=== PATIENT | male | born 1955 | race Caucasian/White ===

== ENCOUNTER 2017-12-01 20:25 | Observation (INO) | payer SELFPAY ==
--- NOTE | 2017-12-01 20:40 | CPEKG ---
Heart Rate: 67 RR Interval: 896 P-R Interval: 144 QRSD Interval: 98 QT Interval: 404 QTC Interval: 427 P [place]: 26 QRS [place]: 29 T Wave [place]: 15 EKG Severity - NORMAL ECG - EKG Impression: SINUS RHYTHM Electronically Signed By: Ju Reaves 02-Dec-2017 15:49:08
--- NOTE | 2017-12-01 20:47 | EDPHY ---
HPI/HX/ROS/PE/MDM Narrative: CHIEF COMPLAINT: Changing blood pressure HISTORY OF PRESENT ILLNESS: The patient is a 62 y/o male with a history of 4 cardiac stents and hypertension complaining of an increasing diastolic pressure. 1 month ago he had crushing chest pain and dizziness that last for 20 minutes. Denies receiving medical attention at this time. Since the chest pain his diastolic has been rising. He has had no chest pain, but "felt pressure build up in his body" and became more "agitated and confused". He also felt like his gait was "sluggish", but did not have vision or speech difficulties. Last week he became tired after exerting himself and felt pressure in his body. His blood pressure was 170/107, and his PCP was concerned of a hypertensive emergency. He did not receive medical attention at this time as he was in [place]. 2 days ago his blood pressure was 140/80. Today his blood pressure changed from 170/110 but dropped down to 115/70 after working out. He also experienced chest pressure and pins and needles in his chest, at around 14:00, 7.5 hours ago. Denies loss of consciousness. Denies taking an luis inhibitor or an Aspirin. Patient reports a brief episode of chest pain while in the ED as well. Last stress test was at least 4 years ago per the patient. No fever, recent illness, chills, shortness of breath, palpitations, vomiting, diarrhea, urinary complaints, syncope. REVIEW OF SYSTEMS: Aside from elements discussed in the HPI, a comprehensive 10-point review of systems was reviewed and is negative. PAST MEDICAL HISTORY: Cardiac stents x 4, hypertension. Take HCTZ for hypertension; denies any other antihypertensives. SOCIAL HISTORY: Lives in [place], at bedside, drinks wine 3-4 times a week , PCP based in [place] VITAL SIGNS: BP: 167/96, others reviewed by me GENERAL: Well-developed, well-nourished, resting comfortably in no respiratory distress. HEENT: Atraumatic. Eyes: No icterus, no injection. Mouth: moist mucous membranes. No erythema or lesions. Neck: supple with no adenopathy. LUNGS: Clear to auscultation bilaterally, no wheezes, rhonchi or rales. CARDIAC: Regular rate and rhythm, no rubs, murmurs or gallops. ABDOMEN: Soft, nontender, nondistended, bowel sounds normal. BACK: No CVA tenderness. EXTREMITIES: No trauma. No edema. Range of motion is normal throughout. NEURO: Alert and oriented, grossly nonfocal. SKIN: Warm and dry, no rash. PSYCHIATRIC: Normal mentation, no agitation. Very anxious about his blood pressure readings and the fluctuations. Portions of this note were transcribed by a director of medical staff services. I personally performed a history, physical exam, medical decision making, and confirmed accuracy of information the transcribed note. ED Course: The patient is a 62 y/o male with a history of 4 cardiac stents and hypertension presenting with an increasing diastolic pressure and fluctuating blood pressure since experiencing crushing chest pain 1 month ago. He also reports intermittent clutching sensation of chest pain, including an episode today. His physical exam is normal. Chest x-ray, EKG, and labs ordered. 2210: Patient has a negative d-dimer and troponin. Normal CXR, Neg head CT. 2303: Reassessed patient and discussed imaging findings. Long conversation held with patient concerning need for urgent risk startification, provocative testing. 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 After discussions, they understand the importance of further evaluation, monitoring, and testing in the hospital. He is comfortable with being admitted for further observation and evaluation. 2316: Consulted with hospitalist service, Dr. Christensen accepts admission of this patient. MDM: Diff dx considered included essential hypertension, hypertensive emergency, hypertensive urgency, acute coronary syndrome, chf, diastolic dysfunction, arrythmias. - Data Points Imaging Results: Impression: Clear lungs. No acute process. Dictated By: Reynold Rhoades MD Impression: Normal brain. No intercranial hemorrhage, mass, or swelling. Findings were communicated to Emergency Department physician, Ju Reaves MD via her scribe at 12/01/2017 22:53. Imaging: Discussed imaging studies w/ call center consultant Radiologist, I viewed and interpreted images myself Laboratory Results: Laboratory Results 12/01/17 20:40 12/01/17 20:40 Medications Given: Enoxaparin Sodium (Lovenox) 40 mg SC DAILY EDVIN Stop: 05/31/18 08:59 Last Admin: 12/02/17 08:56 Dose: Not Given Discontinued Medications Metoprolol Tartrate (Lopressor) 25 mg PO ONCE ONE Stop: 12/02/17 10:55 Last Admin: 12/02/17 11:38 Dose: 25 mg General Time Seen by Provider: 12/01/17 20:41 Initial Vital Signs: Initial Vital Signs Temperature (C) 36.8 C 12/01/17 20:29 Heart Rate 75 12/01/17 20:29 Respiratory Rate 16 12/01/17 20:29 Blood Pressure 167/96 H 12/01/17 20:29 O2 Sat (%) 96 12/01/17 20:29 O2 Delivery Mode Room Air Allergies/Adverse Reactions: Penicillins Allergy (Verified 12/01/17 20:31) Home Medications: Medication Instructions Recorded Triamterene/Hctz 37.5/ [Dyazide 1 each PO DAILY 12/02/17 37.5/ (*)] Departure - Departure Disposition: [facility] Inpatient Acute Clinical Impression: Chest discomfort CAD (coronary artery disease) Qualifiers: Coronary Disease-Associated Artery/Lesion type: unspecified vessel or lesion type [place] vs. transplanted heart: [place] heart Associated angina: with unspecified angina Qualified Code(s): I25.119 - Atherosclerotic heart disease of [place] coronary artery with unspecified angina pectoris Hypertension Qualifiers: Hypertension type: unspecified Qualified Code(s): I10 - Essential (primary) hypertension Condition: Fair Report Scribed for: Ju Reaves Report Scribed by: Diane Mota Date of Report: 12/01/17 Time of Report: 20:47
[2017-12-01 21:34] LABS: PLATELET COUNT 158 10^3/uL (150-400)
[2017-12-01] MEDS ORDERED: ACETAMINOPHEN 325 MG TAB PO PRN (23:20)
[2017-12-01] MEDS ORDERED: ONDANSETRON DISINTEGRATING 4 MG TAB PO PRN (23:20)
[2017-12-01] MEDS ORDERED: ONDANSETRON 4 MG/2 ML VIAL IVP PRN (23:20)
--- NOTE | 2017-12-02 01:43 | PDGENHP ---
History and Physical - Chief Complaint Chest discomfort - History of Present Illness 62 yo M w/ hx of CAD and HTN presents with fatigue and chest discomfort. Patient reports hx of CAD with stents placed 8 and 5 years ago. He explains he initially had drug eluting stents followed by bare metal stents per his request. He does not take ASA, statin, or BB. His only medication is HCTZ. He explains he had an episode 3 months ago where he collapsed in his driveway while carrying boxes followed by chest pain. He did not seek medical attention at that time. Then, over the last few days, he has noticed increased fatigue and occasional chest tightness. These symptoms worsened today so he decided to come in the ED for evaluation. In the ED BP was noted to be elevated, which he states is new for him. He has been checking his BP regularly over the last few weeks and has noticed values as high as SBP>200. Additional evaluation was unremarkable with negative troponin and non-ischemic ECG. History Information - Allergies/Home Medication List Allergies/Adverse Reactions: Penicillins Allergy (Verified 12/01/17 20:31) I have personally reviewed and updated: family history, medical history - Past Medical History coronary artery disease, hypertension - Surgical History Reports: no pertinent surgical hx - Family History Positive for: cancer - Social History Smoking Status: Never smoked Review of Systems Review of Systems: ROS: 10pt was reviewed & negative except for what was stated in HPI & below Physical Exam Physical Exam: Temp Pulse Resp BP Pulse Ox 36.6 C 63 17 170/88 H 95 12/02/17 00:10 12/02/17 00:10 12/02/17 00:10 12/02/17 00:10 12/02/17 00:10 Constitutional: no apparent distress, not in pain Eyes: PERRL, EOMI Ears, Nose, Mouth, Throat: moist mucous membranes, no oral mucosal ulcers Cardiovascular: regular rate and rhythym, no murmur, rub, or gallop Respiratory: no respiratory distress, clear to auscultation Gastrointestinal: normoactive bowel sounds, soft, non-tender abdomen Skin: warm, normal color Musculoskeletal: full muscle strength, no muscle tenderness Neurologic: AAOx3, CN II-XII Intact Psychiatric: interacting appropriately, not anxious Lab Data & Imaging Review 12/01/17 20:40 12/01/17 20:40 WBC 7.18 10^3/uL (3.80-9.50) 12/01/17 20:40 RBC 5.77 10^6/uL (4.40-6.38) 12/01/17 20:40 Hgb 16.9 g/dL (13.7-17.5) 12/01/17 20:40 Hct 48.8 % (40.0-51.0) 12/01/17 20:40 MCV 84.6 fL (81.5-99.8) 12/01/17 20:40 MCH 29.3 pg (27.9-34.1) 12/01/17 20:40 MCHC 34.6 g/dL (32.4-36.7) 12/01/17 20:40 RDW 12.6 % (11.5-15.2) 12/01/17 20:40 Plt Count 158 10^3/uL (150-400) 12/01/17 20:40 MPV 11.9 fL (8.7-11.7) H 12/01/17 20:40 Neut % (Auto) 72.7 % (39.3-74.2) 12/01/17 20:40 Lymph % (Auto) 16.9 % (15.0-45.0) 12/01/17 20:40 [place] % (Auto) 9.1 % (4.5-13.0) 12/01/17 20:40 Eos % (Auto) 0.6 % (0.6-7.6) 12/01/17 20:40 Baso % (Auto) 0.4 % (0.3-1.7) 12/01/17 20:40 Nucleat RBC Rel Count 0.0 % (0.0-0.2) 12/01/17 20:40 Absolute Neuts (auto) 5.23 10^3/uL (1.70-6.50) 12/01/17 20:40 Absolute Lymphs (auto) 1.21 10^3/uL (1.00-3.00) 12/01/17 20:40 Absolute Monos (auto) 0.65 10^3/uL (0.30-0.80) 12/01/17 20:40 Absolute Eos (auto) 0.04 10^3/uL (0.03-0.40) 12/01/17 20:40 Absolute Basos (auto) 0.03 10^3/uL (0.02-0.10) 12/01/17 20:40 Absolute Nucleated RBC 0.00 10^3/uL (0-0.01) 12/01/17 20:40 Immature Gran % 0.3 % (0.0-1.1) 12/01/17 20:40 Immature Gran # 0.02 10^3/uL (0.00-0.10) 12/01/17 20:40 D-Dimer < 0.27 ug/mLFEU (0.00-0.50) 12/01/17 21:37 Sodium 142 mEq/L (135-145) 12/01/17 20:40 Potassium 3.5 mEq/L (3.5-5.2) 12/01/17 20:40 Chloride 98 mEq/L (97-110) 12/01/17 20:40 Carbon Dioxide 31 mEq/l (22-31) 12/01/17 20:40 Anion Gap 13 mEq/L (8-16) 12/01/17 20:40 BUN 17 mg/dL (7-23) 12/01/17 20:40 Creatinine 1.3 mg/dL (0.7-1.3) 12/01/17 20:40 Estimated GFR 56 12/01/17 20:40 Glucose 89 mg/dL (70-100) 12/01/17 20:40 Calcium 9.5 mg/dL (8.5-10.4) 12/01/17 20:40 Troponin I < 0.012 ng/mL (0.000-0.034) 12/01/17 20:40 Imaging Review: Imaging Impressions Chest X-Ray 12/01/17 21:19 Impression: Clear lungs. No acute process. Head CT 12/01/17 22:10 Impression: Normal brain. No intercranial hemorrhage, mass, or swelling. Findings were communicated to Emergency Department physician, Ju Reaves MD via her scribe at 12/01/2017 22:53. Visualized and Interpreted EKG results: Yes EKG Interpretation: Positive for: normal sinsus rhythm Assessment & Plan Assessment: 62 yo M w/ hx of CAD and HTN presents with fatigue, chest discomfort, and elevated BP. Plan: 1. Chest discomfort - Described by patient as tightness associated with fatigue and elevated BP. He also had a concerning episode 3 months ago where he collapsed and then experienced chest pain. He has significant CAD history including multiple stents and does not take any evidence based medications (ASA , BB, statin) so he is high risk for complication. - Admit to PCU for observation - Trend cardiac enzymes, monitor on telemetry - Will order nuclear stress test for risk stratification 2. CAD - Patient reports hx of CAD with stents placed 8 and 5 years ago. He explains he initially had drug eluting stents followed by bare metal stents per his request. He does not take ASA, statin, or BB. - Acute work-up as above 3. HTN, uncontrolled - Patient takes only HCTZ at home. Unclear if elevated BP is secondary, perhaps to stress from ongoing ischemia, or essential. - If ACS work-up negative, consider addition of ARB (patient reports adverse effects to CCB, BB, and MARE). Diet - NPO pending risk stratification Code - Full Ppx - LMWH Dispo - Admit to PCU for observation
[2017-12-02 04:42] LABS: PLATELET COUNT 137 10^3/uL (150-400)
[2017-12-02] MEDS ORDERED: ENOXAPARIN 40 MG/0.4 ML SYR SC SCH (09:00)
--- NOTE | 2017-12-02 09:04 | ASMTCMCOM ---
CM Note CM Note Notes: 12/02/2017 Case Management Note Reviewed chart. Pt admitted for chest discomfort, hypertension with a history of cardiac stents. There are no immediate case management d/c needs identified at this time d/t pt age, marital status, employment status and activity levels prior to admission. There are no PT or OT orders at this time. Case Management d/c poc: independent with follow up as directed. Case Management available if needs change. Date Signed: 12/02/2017 09:03 AM Electronically Signed By:Jaleesa Valles RN
--- NOTE | 2017-12-02 09:39 | HOSPPROG ---
Hospitalist Progress Note Assessment/Plan: #Accelerated HTN: improved now #Chest pressure: likely due to uncontrolled HTN. h/o CAD with multiple stents -Cardiac CTA pending. #CAD: 5 stents in past, only on HCTZ. Declines ASA, BB, statin #Diet: regular #DVT ppx: Lovenox #Disp: cont observation admission. May DC today if normal cardiac CT Subjective: no chest pain, SOB this morning Objective: Vital Signs Temp Pulse Resp BP Pulse Ox 36.5 C 65 12 147/94 H 96 12/02/17 07:59 12/02/17 07:59 12/02/17 07:59 12/02/17 07:59 12/02/17 07:59 Laboratory Results 12/02/17 03:35 12/02/17 03:35 12/01/17 12/02/17 12/03/17 05:59 05:59 05:59 Intake Total 500 Output Total 625 Balance -125 - Physical Exam Constitutional: no apparent distress Eyes: PERRL Ears, Nose, Mouth, Throat: moist mucous membranes, hearing normal Cardiovascular: regular rate and rhythym, no murmur, rub, or gallop, No edema Respiratory: no respiratory distress, no rales or rhonchi Gastrointestinal: normoactive bowel sounds, soft, non-tender abdomen Genitourinary: no bladder fullness Skin: warm Musculoskeletal: full muscle strength Neurologic: AAOx3, CN II-XII Intact Psychiatric: interacting appropriately ICD10 Worksheet Patient Problems: Problems Problem Status Onset CAD (coronary artery disease) Acute Chest discomfort Acute Hypertension Acute
[2017-12-02] MEDS ORDERED: METOPROLOL TARTRATE 25 MG TAB PO ONE (10:54)
[2017-12-02 11:35] VITALS: TEMP 98.2
[2017-12-02] MEDS ORDERED: IOPAMIDOL (ISOVUE 370) 100 ML BTL IV ONE (12:40)
[2017-12-02 16:40] VITALS: BP 125/78; PULSE 57; RESP 16; O2SAT 93
--- NOTE | 2017-12-02 19:44 | GDS ---
[f rep st] DISCHARGE SUMMARY DISCHARGE DIAGNOSES: 1. Coronary disease, multivessel. 2. Accelerated hypertension. 3. Chest discomfort. HISTORY OF PRESENT ILLNESS: A 62-year-old male with known coronary artery disease, status post 5 jesse nts greater than 10 years ago, presenting with elevated blood pressure and chest discomfort. The only medication he takes is hydrochlorothiazide at home. He does not take an aspirin, statin or beta jolie. He had an episode 3 months ago where he collapsed in his driveway after hiking, follow ed by chest pain. He did not seek medical attention at that time. Over the last few days he has not iced increased fatigue and occasional chest tightness. These symptoms worsened on the day of admissi on, so he decided to come to the emergency department. He noted that his systolic blood pressures [place] d been greater than 200 and his diastolic blood pressure greater than 100. He reports a widened puls e pressure at home. HOSPITAL COURSE BY PROBLEM: 1. Acute chest pressure: Initial plan was Lexiscan; however, we were out of the isotope, so the pat ient underwent coronary angiogram. It showed a patent RCA, LAD, and 1st diagonal coronary stents. T here was mild to moderate 50% stenosis of the LAD, severe stenosis of mid LAD 60% to 70%. Also 50% s tenosis of first diagonal branch and mild 50% to 60% first obtuse marginal. I had an extensive conve rsation with the patient and his discussing treatment options. He declines medical management, including aspirin, statin or beta jolie given bradycardia. He has a personal physician that he wan ts to consult. He follows more of alternative treatments with diet and exercise. He was given stric t return precautions if any chest pain, shortness of breath, or dizziness. 2. He reports a widen pulse pressure at home. Would recommend for further evaluation as an outpatie nt. He plans to follow up with his private physician. 3. Accelerated hypertension: Initial systolic blood pressure was greater than 200. It has improved to the 140s. 4. Chest discomfort: Again, coronary CT demonstrated multivessel disease. The vessels affected are the LAD with a 60% to 70% stenosis, first DM and first OM. Again, he declined any further cardiac e valuation at this time. DISPOSITION: Patient is chest pain-free and would like to go home. He is stable for discharge. MEDICATIONS: No new medications. FOLLOWUP: I would recommend establishing care with a fastener technologist. He is to follow up with his [facility] physician. /[id number]/MODL
[2017-12-03] MEDS ORDERED: TRIAMTERENE/HCTZ 37.5/25 1 EACH CAP PO SCH (09:00)
--- NOTE | 2017-12-03 12:01 | ASDISCHSUM ---
Discharge Information Plan Status:Home with No Needs Medically Cleared to Leave:12/01/2017 Discharge Date:12/02/2017 06:10 PM CM D/C Disposition:Home, Routine, Self-Care ADT D/C Disposition:Home, Routine, Self-Care Projected Discharge Date:12/02/2017 06:10 PM Transportation at D/C: Discharge Delay Reason: Follow-Up Date:12/02/2017 06:10 PM Discharge Slot: Final Diagnosis: Placement Information Patient Contact Information Contact Name:MEREDITH Relationship: Address:[address] [place] [address] City:[place] Alternate Phone: [facility]/Zip Code:[place] [address] Email: Financial Information Financial Class:Self-Pay Primary Plan Desc:SELF PAY Primary Plan Number: Secondary Plan Desc: Secondary Plan Number: Assessment Information [facility] CM Progress Note CM Note CM Note Notes: 12/02/2017 Case Management Note Reviewed chart. Pt admitted for chest discomfort, hypertension with a history of cardiac stents. There are no immediate case management d/c needs identified at this time d/t pt age, marital status, employment status and activity levels prior to admission. There are no PT or OT orders at this time. Case Management d/c poc: independent with follow up as directed. Case Management available if needs change. Date Signed: 12/02/2017 09:03 AM Electronically Signed By:Jaleesa Valles RN Intervention Information
--- NOTE | 2017-12-03 12:02 | ASMTLACE ---
LACE Length of stay for Answers: Less than 1 day current admission Acuity / Level of Answers: Yes Care: Did the patient have an inpatient admission? Comorbidities - select Answers: Other all that apply # of Emergency department Answers: 0 visits in the last 6 months Score: 4 Date Signed: 12/03/2017 12:01 PM Electronically Signed By:Jaleesa Valles RN
== END 2017-12-02 18:10 | disposition home or self-care (01) ==
LOC: F2W 12-02 00:07
PROVIDERS: ADMIT Student in an Organized Health Care Education/Training Program; ATTEND Student in an Organized Health Care Education/Training Program
DX: R07.9 Chest pain, unspecified (principal); I25.10 Atherosclerotic heart disease of native coronary artery without angina pectoris; I10 Essential (primary) hypertension; K44.9 Diaphragmatic hernia without obstruction or gangrene; Z95.1 Presence of aortocoronary bypass graft
CPT/HCPCS: G0378; Q9967

== ENCOUNTER 2018-08-07 06:10 | Day surgery (SDC) | payer OTHER ==
[2018-08-07] MEDS ORDERED: FAMOTIDINE 20 MG TAB PO ONE (06:12)
[2018-08-07] MEDS ORDERED: NS 1,000 ML IV ONE (06:12)
[2018-08-07] MEDS ORDERED: ASPIRIN EC 325 MG TAB PO ONE ×2 (06:12→06:34)
[2018-08-07] MEDS ORDERED: DIAZEPAM 5 MG TAB PO ONE (06:12)
[2018-08-07] MEDS ORDERED: diphenhydrAMINE 25 MG CAP PO ONE ×2 (06:12→06:33)
[2018-08-07] MEDS ORDERED: DIAZEPAM 5 MG TAB ONE (06:34)
[2018-08-07] MEDS ORDERED: FAMOTIDINE 20 MG TAB ONE (06:34)
[2018-08-07] MEDS ORDERED: LIDOCAINE 1% 300 MG/30 ML SDV ONE (06:54)
[2018-08-07] MEDS ORDERED: IOPAMIDOL (ISOVUE-370) 150 ML BTL IV ONE (06:54)
[2018-08-07 06:56] LABS: PLATELET COUNT 125 10^3/uL (150-400)
[2018-08-07 06:57] LABS: INR 1.06 (0.83-1.16)
[2018-08-07] MEDS ORDERED: fentaNYL 100 MCG/2 ML INJ ONE (07:20)
[2018-08-07] MEDS ORDERED: MIDAZOLAM 2 MG/2 ML VIAL ONE (07:20)
--- NOTE | 2018-08-07 07:45 | PDHPUP ---
History & Physical Update H&P update statement: This history and physical update is based on an assessment of the patient which was completed after admission or registration (within 24 hours), but prior to the surgery/procedure. H&P update: H&P reviewed & patient examined, no change in patient's condition since H&P completed
--- NOTE | 2018-08-07 07:45 | PDPROPOC ---
Sedation Plan of Care Sedation Plan of Care: mental status noted, patient educated of risks, benefits , alternatives, patient can tolerate sedation ASA Classification: ASA 2 Planned drugs: fentanyl, midazolam Mallampati Score: Class 2 Mallampati Reference Image: Patient passed 3-3-2 rule?: Yes
[2018-08-07] MEDS ORDERED: HYDROCODONE/APAP 5/325 TAB PO PRN (08:36)
[2018-08-07] MEDS ORDERED: OXYCODONE/APAP 5/325 TAB PO PRN (08:36)
[2018-08-07] MEDS ORDERED: NITROGLYCERIN 0.4 MG BTL SL PRN (08:36)
[2018-08-07] MEDS ORDERED: ATROPINE SULFATE 1 MG/10 ML SYR IVP PRN (08:36)
[2018-08-07] MEDS ORDERED: ONDANSETRON 4 MG/2 ML VIAL IVP PRN (08:36)
--- NOTE | 2018-08-07 09:33 | CPIP ---
DATE OF PROCEDURE: 08/07/2018 INDICATION FOR PROCEDURE: Positive stress test. History of coronary artery disease. PROCEDURE: 1. Nonselective right groin sheathogram. 2. Bilateral selective coronary angiography. 3. Left catheterization. 4. Left ventriculogram. HISTORY: Briefly, this is a 62-year-old male with history of coronary artery disease. The patient h as been having labile hypertension as an outpatient also had stress testing which apparently showed T ID. Given these findings, patient consented for left heart catheterization. DESCRIPTION OF PROCEDURE: After informed consent had been obtained, the patient was brought to [facility] here the right groin was prepped and draped in sterile fashion. Using lidocaine, a short 6-Bangladeshi sh eath was introduced in the common femoral artery verified angiographically. Through a 6-Bangladeshi sheat h a JL4 catheter was advanced to the left coronary artery. In this left coronary artery revealed nor mal left main. There was a medium to large marginal 1 artery, very high in the circumflex system, wh ich had a 70% proximal lesion. Distally, the vessel appeared to be healthy and free of disease. The re was a marginal 2 artery which came off which was smaller, but also had a focal 70% lesion in its p roximal aspect. There is a larger marginal 3 artery which was healthy and free of disease and ____ there appeared to be an LPDA which appeared to be healthy and free of disease. The LAD was a lo ng vessel which wrapped around the apex. Of note, the LAD had a stent proximally, which was patent, however, distally there appeared to be diffuse hazy 70% to 80% disease in its mid portion. Distally, the vessel appeared mildly diseased but patent. The diagonal artery had a stent which was coming of the mid proximal LAD portion, had a stent as well which was patent. However, distal to this, there was diffuse 70% disease. Distally, the vessel appeared to be patent. After these images were obtain ed the JL4 catheter was removed. The JR4 catheter was advanced to the right coronary artery. Images of the right coronary artery revealed normal ostial RCA. There was a stent to the proximal RCA, whi ch appeared to be patent. The RPDA had a focal lesion approximately 70% distally. The RPLS appeared to be widely patent. After these images were obtained, the AL1 catheter was removed as the JR4 cath eter would not fit properly. A pigtail catheter was advanced to the left ventricle. EDP was 12 mmHg. Left ventriculogram in the JACKSON position showed EF of 65% with no wall motion abnormalities. No pul lback gradient into the LV and aorta. Pigtail catheter was removed over an 0.035 wire. Right groin was closed with 6-Bangladeshi Angio-Seal. The patient tolerated the procedure well with no complications. IMPRESSION: 1. Severe multivessel coronary artery disease namely in the form of mid left anterior descending, mi d distal diagonal artery, ostial OM1, ostial OM2 as well as mid RPLS. 2. Normal ejection fraction. PLAN: The patient's diseased vessels are all distal to his previously placed stents. Given the ba r number of arteries that are involved I feel placing multiple stents in these vessels would be inapp ropriate without obtaining a surgical consult first. I will consult CT surgery with Dr. Nye for fu rther discussion with the patient, his , and the patient's primary care physician in [place]. Onc e a consensus agreement has been made, we will proceed with therapy as agreed upon. /[id number]/MODL
--- NOTE | 2018-08-08 12:09 | CPEKG ---
Test Reason : OPEN Blood Pressure : / mmHG Vent. Rate : 071 BPM Atrial Rate : 072 BPM P-R Int : 175 ms QRS Dur : 097 ms QT Int : 399 ms P-R-T Axes : 068 035 042 degrees QTc Int : 434 ms Sinus rhythm Confirmed by Jaydon Nichols ([id number]) on 08/08/2018 12:08:49 PM Referred By: Confirmed By:Jaydon Nichols
--- NOTE | 2018-08-12 11:05 | GCON ---
DATE OF CONSULTATION: 08/07/2018 REFERRING PHYSICIAN: Reggie Bashir MD Patient seen at the request Dr. Bashir and Dr. Song with the patient's permission. IMPRESSION: 1. Asymptomatic arteriosclerotic heart disease, severe with balanced ischemia on noninvasive testing . 2. Difficult to control hypertension. 3. Congestive heart failure. RECOMMENDATIONS: This gentleman should undergo elective coronary artery revascularization. Risks an d complications were reviewed at length with the patient. Alternatives, including medical therapy we re reviewed with the patient and his spouse. HISTORY OF PRESENT ILLNESS: A pleasant 62-year-old gentleman with prior stents who presented with la bile blood pressure of uncertain etiology. He had a complete workup, including noninvasive testing o f his coronaries, which showed no evidence of ischemia. Suspected balanced ischemia was interrogated with diagnostic left heart catheterization, which shows severe 3-vessel disease. He was recommended for surgical intervention. PAST MEDICAL HISTORY: As stated above. PAST SURGICAL HISTORY: Surgeries, include heart catheterization and stent. ALLERGIES: Penicillin. MEDICATIONS: Telmisartan. SOCIAL HISTORY: He does not drink. Does not smoke. 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 REVIEW OF SYSTEMS: Otherwise unremarkable. PHYSICAL EXAMINATION: GENERAL: This is a moderately overweight middle-aged gentleman, awake, alert, accompanied by his in no apparent distress. VITAL SIGNS: Blood pressure is 160/96, pulse 76, respirations 14, nonlabored. Weight 90 kg. HEENT: Normocephalic. [place]. EOMI. NECK: Without br uit, adenopathy, or thyromegaly. HEART: Rate is regular without murmur, S3, or S4. LUNGS: Clear. ABDOMEN: Soft, nontender. Bowel sounds are active. RECTAL/GENITAL: Exams were deferred. NEUROLO GIC: He is grossly intact. Motor and sensory appear intact. EXTREMITIES: Pedal pulses are 2+. /[id number]/MODL
== END 2018-08-07 14:30 | disposition home or self-care (01) ==
LOC: FCATH 06:10
PROVIDERS: ATTEND Internal Medicine Cardiovascular Disease
PROC: 4A023N7 Measurement of Cardiac Sampling and Pressure, Left Heart, Percutaneous Approach (ICD-10-PCS; principal; 2018-08-07)
PROC: B2111ZZ Fluoroscopy of Multiple Coronary Arteries using Low Osmolar Contrast (ICD-10-PCS; principal; 2018-08-07)
PROC: B2151ZZ Fluoroscopy of Left Heart using Low Osmolar Contrast (ICD-10-PCS; principal; 2018-08-07)
DX: I25.10 Atherosclerotic heart disease of native coronary artery without angina pectoris (principal); I10 Essential (primary) hypertension
CPT/HCPCS: C1760; J1644; J2250; J3010; Q9967

== ENCOUNTER → 2018-09-02 | Outpatient (CLI) | payer OTHER | LOC: FIMAGING 09:54 | PROVIDERS: ATTEND Thoracic Surgery (Cardiothoracic Vascular Surgery) | DX: J90 Pleural effusion, not elsewhere classified (principal); Z95.1 Presence of aortocoronary bypass graft ==

== ENCOUNTER → 2018-09-08 | Outpatient (CLI) | payer OTHER | LOC: FIMAGING 13:01 | PROVIDERS: ATTEND Internal Medicine | DX: I25.10 Atherosclerotic heart disease of native coronary artery without angina pectoris (principal); Z98.890 Other specified postprocedural states; R05 Cough ==